=== PATIENT | male | born 1950 | race Caucasian/White ===

== ENCOUNTER → 2023-07-27 | Outpatient (CLI) | payer MEDICARE ==
[2023-07-27 13:10] LABS: ALBUMIN 3.9 g/dL (3.5-5.0); BILIRUBIN,TOTAL 0.4 mg/dL (0.2-1.0); CREATININE 0.9 mg/dL (0.5-1.5); POTASSIUM 3.9 mmol/L (3.5-5.1); TOTAL PROTEIN, SERUM 7.8 g/dL (6.0-8.3)
== END | disposition home or self-care (01) ==
LOC: LAB 09:40
PROVIDERS: ATTEND Student in an Organized Health Care Education/Training Program
DX: I10 Essential (primary) hypertension (principal)
CPT/HCPCS: 36415; 80053; 80061

== ENCOUNTER → 2023-07-31 | Outpatient (CLI) | payer MEDICARE ==
[~2023-07-31] MED LIST: IOHEXOL 350 MG/ML 100ML INFUS..BTL IV ONE
== END | disposition home or self-care (01) ==
LOC: RAH 09:48 → EDUNIT# 08-02 11:30
PROVIDERS: ATTEND Student in an Organized Health Care Education/Training Program
DX: K44.9 Diaphragmatic hernia without obstruction or gangrene (principal); M47.815 Spondylosis without myelopathy or radiculopathy, thoracolumbar region; K76.0 Fatty (change of) liver, not elsewhere classified; R42 Dizziness and giddiness
CPT/HCPCS: 75574; Q9967

== ENCOUNTER → 2023-08-11 | Outpatient (CLI) | payer MEDICARE, BC | END | disposition home or self-care (01) | LOC: SHCH 10:40 → EDUNIT# 11:00 | PROVIDERS: ATTEND Student in an Organized Health Care Education/Training Program | DX: R42 Dizziness and giddiness (principal); H53.9 Unspecified visual disturbance; H26.9 Unspecified cataract; I49.9 Cardiac arrhythmia, unspecified; I10 Essential (primary) hypertension; R09.89 Other specified symptoms and signs involving the circulatory and respiratory systems; E78.1 Pure hyperglyceridemia; R94.31 Abnormal electrocardiogram [ECG] [EKG]; Z79.899 Other long term (current) drug therapy | CPT/HCPCS: 93880 ==

== ENCOUNTER → 2024-08-20 | Outpatient (CLI) | payer MEDICARE ==
--- NOTE | 2024-08-22 05:24 | HMCSR ---
APPROVED REPORT EXAM: Two-dimensional and M-mode echocardiogram with Doppler and color Doppler. INDICATION ICD: i77.810, i50 RISK FACTORS Hypertension Hyperlipidemia 2D Dimensions RVDd4.2 cmLVEF(%)46.6 (>50%)LVED Vol(simp.)175.0 mL IVSd0.8 (0.7-1.1cm)FS(%)24 %LVES Vol(simp.)92.0 mL LVDd5.9 (3.8-5.6cm)LA (2D)3.9 (1.6-4.0cm)LVEF(%, simp.)47 % PWd0.8 (0.7-1.1cm)Ao Root(2D)3.9 (2.0-3.7cm)LA ESV INDEX (BP)31.13 mL/m2 LVDs4.5 (2.5-4.0cm)LVOT diam2.4 (1.8-2.4cm) IVC diam1.6 cm M-Mode Dimensions EPSS1.4 cm LA (MM)4.9 (1.6-4.0cm) Ao Root(MM)4.1 (2.0-3.7cm) Aortic Valve AoV Vmax1.3 m/Francia Peak GR7.0 mmHgLVOT Vmax0.9 m/s AoV VTI0.3 mAo Mean GR3.7 mmHgLVOT VTI0.19 m ERNESTO (VMAX)3.3 cm2AVA (VTI) 3.3 cm2 Mitral Valve MV E Vmax57.2 cm/sDECEL Pctu369 ms MV A Vmax87.7 cm/sP 1/2 T99 ms E/A ratio0.7MVA (PHT)2.2 cm2 MR Max PG92 mmHg TDI E/E' Medial9.9E/E' Lateral5.1 Pulmonary Valve PV Vmax0.9 m/sPV VTI0.20 mPV Mean GR2 mmHg PV Peak GR3.1 mmHgPI End Soila. Terernce 0.8 cm/s Tricuspid Valve TR Vmax2.3 m/sRAP (EST) 3 vcUpYKLU94.6 mmHg TR Peak GR21.6 mmHg Left Ventricle Left ventricular cavity size is normal. There is normal left ventricular wall thickness. LVEF is 40-4 5%. Stage I diastolic dysfunction. Right Ventricle The right ventricle appears borderline dilated. The right ventricular systolic function is normal. Atria The left atrium size is normal. The right atrium size is normal. Aortic Valve Aortic valve is trileaflet. Aortic valve leaflets are sclerotic but open well. No aortic regurgitatio n is present. There is no aortic valvular stenosis. Mitral Valve Mitral valve leaflets are sclerotic but open well. Mitral regurgitation is trace. There is no mitral valve stenosis. Tricuspid Valve The tricuspid valve leaflets appear normal. There is trace tricuspid regurgitation. Pulmonic Valve The pulmonic valve leaflets appear normal. There is trace to mild valvular regurgitation. Great Vessels The aortic root is mildly enlarged, 4.1 cm (prior 4 cm) IVC is normal in size and collapses >50% with inspiration. Pericardium No pericardial effusion. Conclusion Left ventricular cavity size is normal. LVEF is 40-45%. Stage I diastolic dysfunction. The right ventricle appears borderline dilated. The right ventricular systolic function is normal. The left atrium size is normal. The right atrium size is normal. No valvular pathology. No pericardial effusion. The aortic root is mildly enlarged, 4.1 cm (prior 4 cm)
== END | disposition home or self-care (01) ==
LOC: SHCH 09:57
PROVIDERS: ATTEND Student in an Organized Health Care Education/Training Program
DX: I08.8 Other rheumatic multiple valve diseases (principal); I77.810 Thoracic aortic ectasia; E78.5 Hyperlipidemia, unspecified; I11.9 Hypertensive heart disease without heart failure
CPT/HCPCS: 93306